=== PATIENT | male | born 1960 | race African-American/Black ===

== ENCOUNTER 2017-06-16 14:45 | Outpatient (CLI) | payer OTHER ==
[2017-06-16] MEDS ORDERED: [UNRECOGNIZED DRUG - REMARK] (15:19)
--- NOTE | 2017-06-16 15:22 | GI Initial Consult Note ---
History of Present Illness General Date patient seen: Jun 16, 2017 Time patient seen: 15:16 Referring physician: ELEUTERIO Reason for Consultation: SCREENING COLON Present Illness HPI 57 year old male patient referred by Dr. Sethi for routine screening colonoscopy. The patient presents today with no GI symptoms. Denies any weight loss or dietary changes. Home Meds Reported Medications [Unknown BP med] No Conflict Check, DAILY 06/16/17 Med list reviewed/reconciled: Yes Allergies: Coded Allergies: No Known Allergies (Unverified , 06/16/17) Patient History History Provided By: Patient Past Medical History: HTN Past Surgical History: none Pertinent Family History: none Social History: Reports: alcohol use - occasional Review of Systems All Other Systems: negative except mentioned in HPI Physical Exam T 98.1 BP 130/29 P 89 HT 5'5 WT 185 lbs Sp02 EP Interpretation: reviewed General Appearance: well appearing, no apparent distress, alert Head: normocephalic EENT: PERRL/EOMI, normal ENT inspection Neck: supple Respiratory: normal breath sounds, no respiratory distress Cardiovascular: normal rate Gastrointestinal: normal inspection, non tender, soft Rectal: deferred Genitourinary: no CVA tenderness Musculoskeletal: normal inspection, back normal Neurologic: normal inspection, alert, oriented x3, responsive Psychiatric: normal inspection, judgement/insight normal, memory normal Skin: normal inspection, normal color, no rash, warm/dry Lymphatic: normal inspection, no adenopathy GI: Plan Problems: (1) Colonoscopy planned (2) HTN (hypertension) Plan colonoscopy to be scheduled pending prior authorization >> will contact patient - CLD & prep instructions given and acknowledged by patient. Seen with Dr. Hernandez. Thank you for referring this patient. Selena Teixeira N.P. Jun 16, 2017 15:22
== END 2017-06-16 15:15 | disposition home or self-care (01) ==
LOC: PAN 14:45
DX: I10 Essential (primary) hypertension (principal)
CPT/HCPCS: 99201